=== PATIENT | male | born 1990 | race Caucasian/White ===

== ENCOUNTER 2017-06-30 13:28 | Emergency (ER) | payer MEDICAID, OTHER ==
[~2017-06-30] VITALS: Ht 175.3 cm; Wt 86.9 kg
[2017-06-30] MEDS ORDERED: NO HOME MEDS (13:55)
[2017-06-30] MEDS ORDERED: PENI500T2 PO (14:17)
[2017-06-30] MEDS ORDERED: HYDROcodone/acetaminophen 5mg/325mg tablet PO ONE (14:20)
[2017-06-30 14:40] VITALS: BP 131/88
== END 2017-06-30 14:41 | disposition home or self-care (01) ==
LOC: ER 13:28
DX: K04.7 Periapical abscess without sinus (principal); G89.29 Other chronic pain; J45.909 Unspecified asthma, uncomplicated
CPT/HCPCS: 41800; 99283